=== PATIENT | female | born 1990 | race American Indian/Alaskan Native ===

== ENCOUNTER 2016-07-05 19:16 | Emergency (ER) | payer MEDICAID ==
--- NOTE | 2016-07-05 20:09 | Emergency Department Report ---
Chief Complaint: Abdominal Pain Stated Complaint: ABDOMINAL/PELVIC CRAMPS Time Seen by Provider: 07/05/16 20:08 - HPI History of Present Illness: Patient here reports that she is 9 weeks that was confirmed with 3 tests. She complains of lower abdominal pain and vaginal pain x 1 day. She denies vaginal discharge or bleeding. Reports nausea without any vomiting. She says she's having diarrhea stool. Denies any blood in her stool. Denies any fever or chills. Denies any urinary burning frequency or urgency. Patient does not have care at this time. Last menstrual period was - ROS Review of Systems: all Systems are negative unless stated in HPI above. - Exam Vital Signs: Vital Signs 07/05/16 19:41 Temperature 98.3 F Pulse Rate 82 Respiratory 20 Rate Blood Pressure 106/71 O2 Sat by Pulse 100 Oximetry Physical Exam: General: 2-year-old female well-nourished well-developed in no acute distress. CV: S1, S2. Regular rate and rhythm. Abdomen: Tender to palpate in pelvic area. Normal bowel sounds in all quadrants. No CVA tenderness bilaterally. MSE screening note: Focused history and physical exam performed. Due to findings the following was ordered:see MDM ED Medical Decision Making - Medical Decision Making Medical decision making: Patient seen by provider in triage area. Appropriate protocol activated and patient to main ED to be seen by physician. ED Disposition for MSE Condition: Stable Instructions: Abdominal Pain (ED)
[2016-07-05 20:37] LABS: Basophils % (Auto) 0.9 % (0.0-1.8); Eosinophils % (Auto) 1.5 % (0.0-4.3); Hematocrit 37.6 % (30.3-42.9); Hemoglobin 12.3 gm/dl (10.1-14.3); Mean Corpuscular HGB Conc 33 % (30-34); Mean Corpuscular Hemoglobin 28 pg (28-32); Mean Corpuscular Volume 86 fl (79-97); Platelet Count 303 K/mm3 (140-440); Red Blood Count 4.38 M/mm3 (3.65-5.03); Red Cell Distribution Width 14.7 % (13.2-15.2); White Blood Count 7.8 K/mm3 (4.5-11.0)
[2016-07-05 20:54] LABS: Alanine Aminotransferase 18 units/L (7-56); Albumin/Globulin Ratio 1.2 %; Alkaline Phosphatase 52 units/L (35-129); BUN/Creatinine Ratio 11.25; Bilirubin,Total 0.2 mg/dL (0.1-1.2); Blood Urea Nitrogen 9 mg/dL (7-17); Calcium 9.1 mg/dL (8.4-10.2); Carbon Dioxide 24 mmol/L (22-30); Chloride 102.9 mmol/L (98-107); Glucose 96 mg/dL (65-100); Lipase 24 units/L (13-60); Potassium 3.7 mmol/L (3.6-5.0); Sodium 140 mmol/L (137-145); Total Protein 7.3 g/dL (6.3-8.2)
[2016-07-05 20:55] LABS: Anion Gap 17 mmol/L
[2016-07-05 21:40] LABS: Bacteria,Urine 1+ /HPF (Negative); Bilirubin,Urine NEG (Negative); Blood,Urine NEG (Negative); Ketones,Urine 20 mg/dL (Negative); Leukocyte Esterase,Urine MOD (Negative); Mucus,Urine 2+ /HPF; Nitrite,Urine NEG (Negative); Protein,Urine <15 mg/dL mg/dL (Negative)
--- NOTE | 2016-07-06 02:22 | Emergency Department Report ---
ED Female HPI - General Chief complaint: Abdominal Pain Stated complaint: ABDOMINAL/PELVIC CRAMPS Time Seen by Provider: 07/05/16 20:08 Source: patient, RN notes reviewed Mode of arrival: Ambulatory Limitations: No Limitations - History of Present Illness Initial comments: This is a 26-year-old female, previously unknown to me. She is 3, para 2. Presents to the ER complaining of abdominal pain and vaginal pain times one day. No discharge or bleeding. Positive nausea but no vomiting. No fevers or chills. No chest pain or shortness of breath. No irritative or obstructive urinary symptoms. She is defecating normally. There is no right lower quadrant pain. She cannot describe exacerbating or relieving factors. MD Complaint: pelvic pain -: Gradual Location: suprapubic Radiation: non-radiating Severity: mild Quality: cramping Consistency: intermittent Improves with: none Worsens with: none Are you Now?: Yes Associated Symptoms: abdominal pain. denies: vaginal discharge, vaginal bleeding, headaches, loss of appetite, dysuria, shortness of breath, syncope, weakness - Related Data Sexually active: Yes Previous Rx's Medication Instructions Recorded Last Taken Type Doxylamine/Pyridoxine HCl 1 each PO QHS PRN #30 tablet. 07/06/16 Unknown Rx [Judith Caballero 10-10 mg Tablet] Vit W-Ca,Fe,FA(<1 mg) 1 each PO QDAY #30 tablet 07/06/16 Unknown Rx [ Vitamins] Allergies Allergy/AdvReac Type Severity Reaction Status Date / Time No Known Allergies Allergy Unverified 01/20/14 12:38 ED Review of Systems ROS: Stated complaint: ABDOMINAL/PELVIC CRAMPS Other details as noted in HPI Constitutional: denies: chills, fever Eyes: denies: eye pain, eye discharge, vision change ENT: denies: ear pain, throat pain Respiratory: denies: cough, shortness of breath, wheezing Cardiovascular: denies: chest pain, palpitations Endocrine: no symptoms reported Gastrointestinal: abdominal pain. denies: diarrhea, constipation, hematemesis, melena Genitourinary: denies: urgency, dysuria, discharge Musculoskeletal: denies: back pain, joint swelling, arthralgia Skin: denies: rash, lesions Neurological: denies: headache, weakness, paresthesias Psychiatric: denies: anxiety, depression Hematological/Lymphatic: denies: easy bleeding, easy bruising ED Past Medical Hx - Social History Smoking Status: Never Smoker Substance Use Type: None - Medications Home Medications: Home Medications Medication Instructions Recorded Confirmed Last Taken Type Doxylamine/Pyridoxine HCl 1 each PO QHS PRN #30 tablet. 07/06/16 Unknown Rx [Diclegis Dr 10-10 mg Tablet] Vit W-Ca,Fe,FA(<1 mg) 1 each PO QDAY #30 tablet 07/06/16 Unknown Rx [ Vitamins] ED Physical Exam - General Limitations: No Limitations General appearance: alert, in no apparent distress, obese - Head Head exam: Present: atraumatic, normocephalic - Eye Eye exam: Present: normal appearance, EOMI. Absent: nystagmus - ENT ENT exam: Present: normal exam, normal orophraynx, mucous membranes moist - Neck Neck exam: Present: normal inspection, full ROM. Absent: tenderness, meningismus - Respiratory Respiratory exam: Present: normal lung sounds bilaterally. Absent: respiratory distress, wheezes, rales, rhonchi, stridor - Cardiovascular Cardiovascular Exam: Present: regular rate, normal rhythm, normal heart sounds. Absent: bradycardia, tachycardia, irregular rhythm, systolic murmur, diastolic murmur, rubs, gallop - GI/Abdominal GI/Abdominal exam: Present: soft, normal bowel sounds. Absent: distended, tenderness, guarding, rebound, rigid, pulsatile mass - External exam: Present: normal external exam Speculum exam: Present: normal speculum exam Bi-manual exam: Present: normal bi-manual exam, other (escorted by JUAN PABLO Woo). Absent: cervical motion tendernes, adnexal tenderness, adnexal mass, uterine enlargement, uterine tenderness - Extremities Exam Extremities exam: Present: normal inspection, full ROM, normal capillary refill. Absent: tenderness, pedal edema, joint swelling, calf tenderness - Back Exam Back exam: Present: normal inspection, full ROM. Absent: tenderness, CVA tenderness (R), CVA tenderness (L), muscle spasm, paraspinal tenderness, vertebral tenderness - Neurological Exam Neurological exam: Present: alert, oriented X3, normal gait, other (Extraocular movements intact. Tongue midline. No facial droop. Facial sensation intact to light touch in the V1, V2, V3 distribution bilaterally. 5 and 5 strength in 4 extremities.. Sensation is intact to light touch in 4 extremities.). Absent : motor sensory deficit - Psychiatric Psychiatric exam: Present: normal affect, normal mood - Skin Skin exam: Present: warm, dry, intact, normal color. Absent: rash ED Course Vital Signs 07/05/16 19:41 Temperature 98.3 F Pulse Rate 82 Respiratory 20 Rate Blood Pressure 106/71 O2 Sat by Pulse 100 Oximetry - Reevaluation(s) Reevaluation #1: 07/06/16 04:12 Differential diagnosis: , ectopic , urinary tract infection, ovarian cyst, round ligament pain, constipation Assessment and plan: 26-year-old female who is with abdominal pain. There is no tenderness, rebound, guarding or peritoneal signs. There is no right lower quadrant pain. She is afebrile with reassuring vital signs and no leukocytosis. Her gynecologic exam is benign. Abdominal and transvaginal ultrasound demonstrated appropriate intrauterine . Clinically doubt torsion, there is no adnexal tenderness. She is tolerating liquid feeds. Highly doubt appendicitis for the aforementioned laboratory, radiographic, physical exam findings. Patient was started on vitamins, as needed nausea medication, and is instructed to follow up with outpatient [facility]. The importance of initiating care was discussed with the patient. She will be discharged. ED Medical Decision Making - Lab Data Result diagrams: 07/05/16 20:20 07/05/16 20:20 Vital Signs 07/05/16 19:41 Temperature 98.3 F Pulse Rate 82 Respiratory 20 Rate Blood Pressure 106/71 O2 Sat by Pulse 100 Oximetry Lab Results 07/05/16 07/05/16 07/05/16 Range/Units 20:20 20:20 20:20 WBC 7.8 (4.5-11.0) K/mm3 RBC 4.38 (3.65-5.03) M/mm3 Hgb 12.3 (10.1-14.3) gm/dl Hct 37.6 (30.3-42.9) % MCV 86 (79-97) fl MCH 28 (28-32) pg MCHC 33 (30-34) % RDW 14.7 (13.2-15.2) % Plt Count 303 (140-440) K/mm3 Lymph % (Auto) 36.4 H (13.4-35.0) % Gray % (Auto) 8.6 H (0.0-7.3) % Eos % (Auto) 1.5 (0.0-4.3) % Baso % (Auto) 0.9 (0.0-1.8) % Lymph # 2.9 (1.2-5.4) K/mm3 Gray # 0.7 (0.0-0.8) K/mm3 Eos # 0.1 (0.0-0.4) K/mm3 Baso # 0.1 (0.0-0.1) K/mm3 Seg Neutrophils % 52.6 (40.0-70.0) % Seg Neutrophils # 4.1 (1.8-7.7) K/mm3 Sodium 140 (137-145) mmol/L Potassium 3.7 (3.6-5.0) mmol/L Chloride 102.9 (98-107) mmol/L Carbon Dioxide 24 (22-30) mmol/L Anion Gap 17 mmol/L BUN 9 (7-17) mg/dL Creatinine 0.8 (0.7-1.2) mg/dL Estimated GFR > 60 ml/min BUN/Creatinine Ratio 11.25 % Glucose 96 (65-100) mg/dL Calcium 9.1 (8.4-10.2) mg/dL Total Bilirubin 0.2 (0.1-1.2) mg/dL AST 17 (5-40) units/L ALT 18 (7-56) units/L Alkaline Phosphatase 52 (35-129) units/L Total Protein 7.3 (6.3-8.2) g/dL Albumin 4.0 (3.9-5) g/dL Albumin/Globulin Ratio 1.2 % Lipase 24 (13-60) units/L HCG, Quant 24827 H (0-4) mIU/mL Urine Color (Yellow) Urine Turbidity (Clear) Urine pH (5.0-7.0) Ur Specific Carlton (1.003-1.030) Urine Protein (Negative) mg/dL Urine Glucose (UA) (Negative) mg/dL Urine Ketones (Negative) mg/dL Urine Blood (Negative) Urine Nitrite (Negative) Urine Bilirubin (Negative) Urine Urobilinogen (<2.0) mg/dL Ur Leukocyte Esterase (Negative) Urine WBC (Auto) (0.0-6.0) /HPF Urine RBC (Auto) (0.0-6.0) /HPF U Epithel Cells (Auto) (0-13.0) /HPF Urine Bacteria (Auto) (Negative) /HPF Urine Mucus /HPF Blood Type Ord Rhogam Gestat Weeks WEEKS 07/05/16 07/05/16 Range/Units 20:20 20:56 WBC (4.5-11.0) K/mm3 RBC (3.65-5.03) M/mm3 Hgb (10.1-14.3) gm/dl Hct (30.3-42.9) % MCV (79-97) fl MCH (28-32) pg MCHC (30-34) % RDW (13.2-15.2) % Plt Count (140-440) K/mm3 Lymph % (Auto) (13.4-35.0) % Gray % (Auto) (0.0-7.3) % Eos % (Auto) (0.0-4.3) % Baso % (Auto) (0.0-1.8) % Lymph # (1.2-5.4) K/mm3 Gray # (0.0-0.8) K/mm3 Eos # (0.0-0.4) K/mm3 Baso # (0.0-0.1) K/mm3 Seg Neutrophils % (40.0-70.0) % Seg Neutrophils # (1.8-7.7) K/mm3 Sodium (137-145) mmol/L Potassium (3.6-5.0) mmol/L Chloride (98-107) mmol/L Carbon Dioxide (22-30) mmol/L Anion Gap mmol/L BUN (7-17) mg/dL Creatinine (0.7-1.2) mg/dL Estimated GFR ml/min BUN/Creatinine Ratio % Glucose (65-100) mg/dL Calcium (8.4-10.2) mg/dL Total Bilirubin (0.1-1.2) mg/dL AST (5-40) units/L ALT (7-56) units/L Alkaline Phosphatase (35-129) units/L Total Protein (6.3-8.2) g/dL Albumin (3.9-5) g/dL Albumin/Globulin Ratio % Lipase (13-60) units/L HCG, Quant (0-4) mIU/mL Urine Color Yellow (Yellow) Urine Turbidity Clear (Clear) Urine pH 6.0 (5.0-7.0) Ur Specific Carlton 1.030 (1.003-1.030) Urine Protein <15 mg/dl (Negative) mg/dL Urine Glucose (UA) Neg (Negative) mg/dL Urine Ketones 20 (Negative) mg/dL Urine Blood Neg (Negative) Urine Nitrite Neg (Negative) Urine Bilirubin Neg (Negative) Urine Urobilinogen 2.0 (<2.0) mg/dL Ur Leukocyte Esterase Mod (Negative) Urine WBC (Auto) 1.0 (0.0-6.0) /HPF Urine RBC (Auto) 2.0 (0.0-6.0) /HPF U Epithel Cells (Auto) 5.0 (0-13.0) /HPF Urine Bacteria (Auto) 1+ (Negative) /HPF Urine Mucus 2+ /HPF Blood Type A POSITIVE Ord Rhogam Gestat Weeks Rh pos WEEKS - Radiology Data Radiology results: report reviewed, image reviewed Pelvic ultrasound demonstrates an incidental posterior uterine fibroid, minimal free pelvic fluid, cardiac activity of 118 bpm, intrauterine . Critical care attestation.: If time is entered above; I have spent that time in minutes in the direct care of this critically ill patient, excluding procedure time. ED Disposition Clinical Impression: Disposition: DISCHARGED TO HOME OR SELFCARE Is pt being admited?: No Does the pt Need Aspirin: No Condition: Stable Instructions: Abdominal Pain (ED) Additional Instructions: Take the medications as directed. Rest and avoid heavy lifting. Avoid strenuous physical activity. Follow-up with an [facility] doctor within the next week. It is very important to initiate care for the health, safety, well-being of yourself and the baby. Return to the ER right away with new pain , worsened pain, migration of pain, fevers, chills, intractable nausea or vomiting, inability to tolerate liquid feeds. Referrals: WILTON CHAN MD [Primary Care Provider] - 3-5 Days FARHAT FAJARDO MD [Staff Physician] - 3-5 Days
--- NOTE | 2016-07-06 02:51 | Admit Criteria Form ---
Admission Criteria Documentation: ABDOMINAL PAIN Clinical Indications for Admission to Inpatient Care (Place 'X' for any and all applicable criteria): Admission is indicated for ANY ONE of the following(1)(2)(3)(4)(5): [ x]I. Inpatient admission required rather than observation care (Also use Abdominal Pain: Observation Care, as appropriate) because of ANY ONE of the following: [ ]a) Severe pain requiring acute inpatient management [ ]b) Identification of etiology/finding that requires inpatient care (eg, aortic dissection, free air) [ ]c) Absent bowel sounds with complete ileus(6) [ ]d) Suspected toxic megacolon [ ]e) Severe electrolyte abnormalities requiring inpatient care [ ]f) High fever or infection requiring inpatient admission as indicated by ANY ONE of following(7)(8): [ ] i) Appropriate outpatient or observational care antimicrobial treatment unavailable, not effective, or not feasible [ ] ii) Documented bacteremia [ ] iii) Temperature > 104.9 degrees F (oral) [ ] iv) T >103.1 F (oral) or < 96.8 F(rectal) that does not respond to all emergency treatment measures [ ]g) Signs of intestinal obstruction [B] [ ]h) Hemodynamic instability [ ]i) IV fluid to replace significant ongoing losses (greater than 3 L/m2 per day) (12)(13) [ ]j) Percutaneous or open drainage (eg, abscess, biliary tract ) procedures [ ]k) Parenteral nutrition regimen that must be implemented on inpatient basis [ x]l) Other condition,treatment or monitoring requiring inpatient admission. [ ]II. Peritoneal signs present [ ]III. Surgery needed that cannot be performed on an ambulatory basis. [ ]IV. Evaluation requires patient to not eat or drink for extended period ( eg, more than 24 hours). [ ]V. Contraindications and/or Inappropriate clinical situations for Observational Care in patients with abdominal pain, when ANY ONE of the following is required: [ ]a) Thorough evaluation is required to prevent catastrophic events due to delays in diagnosing (e.g.Mesenteric ischemia) 1,3 [ ]b) Patient with severe pathology or with chronic symptoms unlikely to improve in the ED stay (3) [ ]. General contraindications and/or Inappropriate clinical situations for Observational Care in patients with abdominal pain, when ANY ONE of the following is required: [ ]a) Prediction of prolongation of LOS based on ANY ONE of the following may be considered as a contraindication for observational care 2, 3, 4, 5, 6, 7, 8, 9, 10, 11 [ ]i) Age > 65 yrs. [ ]ii) Patient arriving by ambulance [ ]iii) Patient with high acuity [ ]iv) Patient requiring vital sign monitoring [ ]v) Patient on IV medication [ ]b) Systolic blood pressures 180mmHg 3,12 [ ]c) Patient with altered mental status including delirium and other alteration of consciousness, (3) [ ]d) Patient whose discharge disposition will be to a prison home or rehabilitation home should not be managed in Emergency Department Observation Unit. CMS rule requires 3 days hospital stay before such placement.3,13 [ ]e) Patient with failure to thrive due to broad array of etiologies 3,16,17 [ ]f) Inability to ambulate 3,14 Extended stay beyond goal length of stay may be needed for(2)(3): [ ]a) Persistent abdominal pain with suspected intra-abdominal process [ ]b) Diagnosed condition requiring continued stay (e.g., pancreatitis, complicated diverticulitis) [ ]c) Surgery (e.g., colectomy) The original [facility] content created by [employer] has been revised. The portions of the content which have been revised are identified through the use of italic text or in bold, and [facility] has neither reviewed nor approved the modified material.All other unmodified content is copyright [facility]. Please see references footnoted in the original [facility] edition 2016
--- NOTE | 2016-07-06 03:25 | Ultrasound Report ---
FINAL REPORT PROCEDURE: US OB TRANSVAGINAL TECHNIQUE: Real-time transvaginal sonography of the uterus, placenta, amniotic fluid, adnexa, and fetus was performed with image documentation. Measurements were obtained to determine age/size. M-mode Doppler was used to document heartbeat. CPT 40418 HISTORY: abdominal pain at 9 weeks COMPARISON: No prior studies are available for comparison. FINDINGS: CRL: 6.3mm, which corresponds to a gestational age of: 6weeks, 3 days. Yolk Sac: Normal. Embryonic Cardiac Activity: 118 beats per minute Gestational Sac: Normal. Right Ovary: There is a 2 centimeter cyst. Left Ovary: Normal. Estimated delivery date: 02/26/2017 Comment: Complete anatomic survey at 18-20 weeks suggested. There is an incidental posterior uterine fibroid measuring 16 millimeters. There is minimal free pelvic fluid which is nonspecific. IMPRESSION: 1. Single living intrauterine gestation at approximately 6 weeks and 3 days 2. EDC by US 02/26/2017.
--- NOTE | 2016-07-06 03:39 | Ultrasound Report ---
FINAL REPORT PROCEDURE: US OB early TECHNIQUE: Real-time transabdominal sonography of the uterus, placenta, amniotic fluid, adnexa, and fetus was performed with image documentation. Measurements were obtained to determine age/size. M-mode Doppler was used to document heartbeat. HISTORY: abdominal pain at 9 weeks COMPARISON: No prior studies are available for comparison. FINDINGS: CRL: 6.3mm, which corresponds to a gestational age of: 6weeks, 3 days. Yolk Sac: Normal. Embryonic Cardiac Activity: 118 beats per minute Gestational Sac: Normal. Right Ovary: There is a 2 centimeter cyst. Left Ovary: Normal. Estimated delivery date: 02/26/2017 Comment: Complete anatomic survey at 18-20 weeks suggested. There is an incidental posterior uterine fibroid measuring 16 millimeters. There is minimal free pelvic fluid which is nonspecific. IMPRESSION: 1. Single living intrauterine gestation at approximately 6 weeks and 3 days 2. EDC by US 02/26/2017.
[2016-07-06 04:19] VITALS: BP 110/66
== END 2016-07-06 04:36 | disposition home or self-care (01) ==
LOC: ED 19:16
DX: O26.891 Other specified pregnancy related conditions, first trimester (principal); R10.2 Pelvic and perineal pain; R11.0 Nausea; Z3A.09 9 weeks gestation of pregnancy
CPT/HCPCS: 36415; 76801; 76817; 80053; 81001; 83690; 84702; 85025; 86900; 86901

== ENCOUNTER 2016-07-25 13:45 | Emergency (ER) | payer MEDICAID ==
--- NOTE | 2016-07-25 18:13 | Emergency Department Report ---
Chief Complaint: Abdominal Pain Stated Complaint: 3 MONTHS / CRAMPING - HPI History of Present Illness: 26-year-old female presents with complaint of lower abdominal pain worsening mild spotting denies dysuria, intermittent nausea - ROS Review of Systems: Currently - Exam Vital Signs: Vital Signs 07/25/16 13:55 Temperature 98.9 F Pulse Rate 95 H Respiratory 16 Rate Blood Pressure 117/60 O2 Sat by Pulse 100 Oximetry Physical Exam: Abdominal pain MSE screening note: Focused history and physical exam performed. Due to findings the following was ordered: Screening Assessment/Plan/Differential Dx: Abdominal pain 1- This initial assessment/diagnostic orders/clinical plan/ treatment(s) is/are subject to change based on pt's health status, clinical progression and re- assessment by fellow clinical providers in the ED. Further treatment and workup at subsequent clinical provers discretion. Patient/guardians urged not to elope from ED as their condition may be serious if not clinically assessed and managed. 2-ultrasound, urine, blood work, type and screen, hCG level ED Disposition for MSE Condition: Stable Instructions: Abdominal Pain (ED)
[2016-07-25 19:14] LABS: Basophils % (Auto) 0.6 % (0.0-1.8); Eosinophils % (Auto) 1.7 % (0.0-4.3); Hematocrit 35.3 % (30.3-42.9); Hemoglobin 11.4 gm/dl (10.1-14.3); Mean Corpuscular HGB Conc 32 % (30-34); Mean Corpuscular Hemoglobin 28 pg (28-32); Mean Corpuscular Volume 88 fl (79-97); Platelet Count 302 K/mm3 (140-440); Red Blood Count 4.02 M/mm3 (3.65-5.03); Red Cell Distribution Width 14.5 % (13.2-15.2); White Blood Count 7.9 K/mm3 (4.5-11.0)
[2016-07-25 19:33] LABS: BUN/Creatinine Ratio 16.66; Blood Urea Nitrogen 10 mg/dL (7-17); Calcium 8.9 mg/dL (8.4-10.2); Carbon Dioxide 22 mmol/L (22-30); Chloride 101.4 mmol/L (98-107); Glucose 94 mg/dL (65-100); Potassium 4.3 mmol/L (3.6-5.0); Sodium 137 mmol/L (137-145)
[2016-07-25 19:35] LABS: Anion Gap 18 mmol/L
[2016-07-25 19:44] LABS: Alanine Aminotransferase 42 units/L (7-56); Albumin 3.9 g/dL (3.9-5); Albumin/Globulin Ratio 1.2 %; Alkaline Phosphatase 60 units/L (35-129); Bilirubin,Total 0.2 mg/dL (0.1-1.2); Total Protein 7.2 g/dL (6.3-8.2)
[2016-07-25 19:53] LABS: Bilirubin,Direct < 0.2 mg/dL (0-0.2)
[2016-07-25 20:22] LABS: Bilirubin,Urine NEG (Negative); Blood,Urine NEG (Negative); Ketones,Urine NEG (Negative); Leukocyte Esterase,Urine NEG (Negative); Mucus,Urine FEW /HPF; Nitrite,Urine NEG (Negative); Protein,Urine <15 mg/dL mg/dL (Negative); Urobilinogen,Urine < 2.0 mg/dL (<2.0); WBC,Urine < 1.0 /HPF (0.0-6.0)
--- NOTE | 2016-07-25 21:55 | Ultrasound Report ---
FINAL REPORT PROCEDURE: Transabdominal obstetrical ultrasound. TECHNIQUE: Real-time transabdominal sonography of the uterus, placenta, amniotic fluid, adnexa, and fetus was performed with image documentation. Measurements were obtained to determine age/size. M-mode Doppler was used to document heartbeat. CPT 35602 HISTORY: Pelvic pain. COMPARISON: Obstetrical ultrasound 07/06/2016. FINDINGS: The uterus measures 11.7 centimeters x 6.5 centimeters x 7.2 centimeters. The myometrium is unremarkable. There is an intrauterine gestational sac. A pole is identified. The crown-rump length measurement is 2.8 centimeters. This indicates a menstrual age of 9 weeks 4 days. The estimated date of confinement is 02/23/2017. Cardiac activity is documented at 159 beats per minute. Both ovaries appear normal in size. There is a small cyst in the right ovary. IMPRESSION: Viable intrauterine with a menstrual age of 9 weeks 4 days.
--- NOTE | 2016-07-25 22:00 | Ultrasound Report ---
FINAL REPORT PROCEDURE: Transvaginal obstetrical ultrasound. TECHNIQUE: Real-time transvaginal sonography of the uterus, placenta, amniotic fluid, adnexa, and fetus was performed with image documentation. Measurements were obtained to determine age/size. M-mode Doppler was used to document heartbeat. CPT 46330 HISTORY: , pelvic pain. COMPARISON: Obstetrical ultrasound 07/06/2016. FINDINGS: The cervix is closed. The uterus measures 11.7 centimeters x 6.5 centimeters x 7.2 centimeters. The myometrium appears uniform. There is an intrauterine gestational sac. A pole is visible. Cardiac activity is documented at 172 beats per minute. The crown-rump length measurement is 2.7 centimeters. This indicates a menstrual age of 9 weeks 3 days. The estimated date of confinement is 02/24/2017. There is a small area of hypoechogenicity adjacent to the gestational sac. This measures 1.8 centimeters in maximum dimension. This could represent a small subchorionic hemorrhage. Both ovaries appear normal in size. There is a small cyst in the right ovary measuring 1.9 centimeters. IMPRESSION: Viable intrauterine with a menstrual age of 9 weeks 3 days. Question small subchorionic hemorrhage.
[2016-07-25 23:18] VITALS: BP 108/61
[2016-07-26] MEDS ORDERED: TYLENOL PO ONE (02:33)
--- NOTE | 2016-07-26 02:37 | Emergency Department Report ---
[id number] 01:55 - HPI HPI: This is a 26-year-old Afro-Slovak female presents the emergency department with complaint of a few days of abdominal cramping and a one hour history of some vaginal spotting. The patient believes she is about 3 months . She is with one previous still . She sees the [facility] near here with Dr. Stephens in it and has an appointment on Saturday. She denies any fever, nausea, vomiting, back pain, vaginal discharge, dysuria. She is not taken anything for symptoms prior to presentation. No recent travel or sick contacts at home. ED Past Medical Hx - Social History Smoking Status: Never Smoker Substance Use Type: None - Medications Home Medications: Home Medications Medication Instructions Recorded Confirmed Last Taken Type Doxylamine/Pyridoxine HCl 1 each PO QHS PRN #30 tablet. 07/06/16 Unknown Rx [Diclegis Dr 10-10 mg Tablet] Vit W-Ca,Fe,FA(<1 mg) 1 each PO QDAY #30 tablet 07/06/16 Unknown Rx [ Vitamins] ED Review of Systems ROS: Stated complaint: 3 MONTHS / CRAMPING Other details as noted in HPI Comment: All other systems reviewed and negative Constitutional: denies: chills, fever Eyes: denies: eye pain, eye discharge, vision change ENT: denies: ear pain, throat pain Respiratory: denies: cough, shortness of breath, wheezing Cardiovascular: denies: chest pain, palpitations Gastrointestinal: abdominal pain. denies: nausea, vomiting Genitourinary: denies: dysuria, discharge Musculoskeletal: denies: back pain, joint swelling, arthralgia Skin: denies: rash, lesions Neurological: denies: headache, weakness, paresthesias Physical Exam - Physical Exam Vital Signs: Vital Signs 07/25/16 07/25/16 13:55 23:17 Temperature 98.9 F Pulse Rate 95 H 80 Respiratory 16 18 Rate Blood Pressure 117/60 108/61 O2 Sat by Pulse 100 100 Oximetry Physical Exam: GENERAL: The patient is well-developed well-nourished. HEENT: Normocephalic. Atraumatic. Extraocular motions are intact. Patient has moist mucous membranes. Pupils equal reactive to light bilaterally. NECK: Supple. Trachea is midline. CHEST/LUNGS: Clear to auscultation. There is no respiratory distress noted. HEART/CARDIOVASCULAR: Regular. There is no tachycardia. There is no gallop rub or murmur. ABDOMEN: Abdomen is soft, nontender. No guarding rebound tenderness. Patient has normal bowel sounds. There is no abdominal distention. Obese habitus. SKIN: There is no rash. Warm but dry. NEURO: The patient is awake, alert, and oriented. The patient is cooperative. The patient has no focal neurologic deficits. The patient has normal speech. MUSCULOSKELETAL: There is no tenderness or deformity. There is no limitation range of motion. There is no evidence of acute injury. ED Course Vital Signs 07/25/16 07/25/16 13:55 23:17 Temperature 98.9 F Pulse Rate 95 H 80 Respiratory 16 18 Rate Blood Pressure 117/60 108/61 O2 Sat by Pulse 100 100 Oximetry ED Medical Decision Making - Lab Data Result diagrams: 07/25/16 18:51 07/25/16 18:51 - Radiology Data Radiology results: report reviewed Transvaginal/ ultrasound shows a live intrauterine at 9 weeks and 3 days. Small subchorionic bleed. - Medical Decision Making 26-year-old female presents to the emergency department with a few days of abdominal cramping and about 1 hour of vaginal spotting/bleeding. Patient's labs are unremarkable. Ultrasound shows a live intrauterine and a small subchorionic bleed. She has an appointment coming up early next week with her [facility]. She will remain on her vitamins. We discussed the diagnosis of threatened miscarriage. She will return to the ER with any worsening of her symptoms including sharp abdominal pain or increased vaginal bleeding or she will return with any acute distress. She understands and agrees the plan. Vital signs stable throughout her ED course. - Differential Diagnosis , miscarriage, threatened , UTI, fibroids Critical Care Time: No Critical care attestation.: If time is entered above; I have spent that time in minutes in the direct care of this critically ill patient, excluding procedure time. ED Disposition Clinical Impression: Threatened Qualifiers: Weeks of gestation: 9 weeks Qualified Code(s): Z3A.09 - 9 weeks gestation of Disposition: DISCHARGED TO HOME OR SELFCARE Is pt being admited?: No Does the pt Need Aspirin: No Condition: Stable Instructions: (ED), Threatened Miscarriage (ED) Additional Instructions: Please follow-up with your [facility] as previously scheduled. Return to the emergency department with any worsening of your symptoms or any acute distress. Referrals: WILTON CHAN MD [Primary Care Provider] - 3-5 Days BLANCA STEPHENS MD [Staff Physician] - 3-5 Days Time of Disposition: 02:37
== END 2016-07-26 02:54 | disposition home or self-care (01) ==
LOC: ED 13:45
DX: O20.0 Threatened abortion (principal); Z3A.09 9 weeks gestation of pregnancy
CPT/HCPCS: 36415; 76801; 76817; 80048; 80074; 81001; 84702; 85025; 86850; 86900; 86901; 87086

== ENCOUNTER 2016-08-27 09:35 | Day surgery (SDC) | payer MEDICAID ==
--- NOTE | 2016-08-24 16:12 | History and Physical Report ---
History of Present Illness Date of examination: 08/24/16 Date of admission: 08/27/16 Chief complaint: incompetent cervix History of present illness: Pt dx with cx incompetence by MFM and cerclage was recommended.Procedure d/w at [facility] and several questions were addressed and answered. Pt signed consent form and was provided with pre op instructions to be at the hospital at 0930 as her procedure is scheduled for 1130 am and that she is to not eat anything after midnight on Saturday 08/26 and morning of 08/27/16. Again all questions were addressed and answered. Past History : 2 Term Births: 1 Premature Births: 1 Living Children: 1 Elect. Ab: 0 Spont. Ab: 0 Ectopics: 0 # 1 Delivery date: 06/22/2011 Weeks Gestation: 39 Delivery type: Vaginal Hours of labor: 10 Anesthesia type: epidural Delivery location: [facility] [place] Infant Sex: female weight: 6 Name: Tye Comments: + GBS # 2 Delivery date: 11/08/2012 Weeks Gestation: 22 Delivery type: Vaginal Anesthesia type: none Delivery location: [facility] [place] Sex: female weight: 1.13 Comments: rupture of membranes Past Medical History: Anemia 22wk loss due to PROM blood transfusion long ago for anemia Past Surgical History: negative Past Medical History Anesthesia Complications: negative Anemia: negative Autoimmune Disorder: negative Bleeding Disorder: negative Blood Transfusions: negative Breast Disease: negative Diabetes: negative Heart Disease: negative Hypertension: negative Hepatitis/Liver Disease: negative Kidney Disease/UTI: negative Neurologic/Epilepsy/Migraines: negative Phlebitis/Varicosities: negative Psychiatric: negative Pulmonary Disease/Asthma: negative Thyroid Disease: negative Hospitalizations: negative Surgery (Non-deputy county attorney): negative Abnormal PAP: negative YASMIN Exposure: negative Infertility: negative Uterine Anomaly: negative Uterine Surgery (not C/S): negative Other Gynecologic Problems: negative Social Hx: single no e/t/d Infection History Hx of STD: none HIV Risk Eval: low risk Hepatitis B Risk Eval: low risk Personal hx. of genital herpes: no Partner hx. of genital herpes: no Varicella/Chicken Pox Status: Previous Disease TB Risk: no Genetic History Congenital Heart Defect: Mom: no Dad: no Christopher Disease: Mom: no Dad: no Thalassemia Mom: no Dad: no Neural Tube Defect Mom: no Dad: no Down's Syndrome Mom: no Dad: no Cyril-Sachs Mom: no Dad: no Sickle Cell Disease/Trait Mom: no Dad: no Hemophilia Mom: no Dad: no Muscular Dystrophy Mom: no Dad: no Cystic Fibrosis Mom: no Dad: no [place] Chorea Mom: no Dad: no Mental Retardation Mom: no Dad: no Fragile X Mom: no Dad: no Other Genetic/Chromosomal Disorder Mom: no Dad: no Child w/other defect Mom: no Dad: no Enviromental Exposures Xray Exposure: no Medication, drug, or alcohol use since LMP: no Chemical/Other Exposure: no Exposure to Cat Liter: no Past History Past Medical History: other (anemia) Past Surgical History: no surgical history ABRASIVE GRINDER History: denies: abnormal PAP smear Family/Genetic History: none Social history: no significant social history, single - Obstetrical History Expected Date of Delivery: 02/21/17 Actual Gestation: 14 Week(s) 1 Day(s) : 3 Para: 1 Hx # Term Pregnancies: 1 Number of Pregnancies: 1 (20 wks PROM) Number of Living Children: 1 Medications and Allergies Allergies Allergy/AdvReac Type Severity Reaction Status Date / Time No Known Allergies Allergy Unverified 01/20/14 12:38 Home Medications Medication Instructions Recorded Confirmed Last Taken Type Doxylamine/Pyridoxine HCl 1 each PO QHS PRN #30 tablet. 07/06/16 Unknown Rx [Judith Caballero 10-10 mg Tablet] Vit W-Ca,Fe,FA(<1 mg) 1 each PO QDAY #30 tablet 07/06/16 Unknown Rx [ Vitamins] Review of Systems All systems: negative - Physical Exam Cardiovascular: Normal S1, Normal S2 Lungs: Positive: Clear to auscultation, Normal air movement Abdomen: Positive: normal appearance, soft. Negative: distention, tenderness, guarding Genitourinary (Female): Positive: other (deferred) Results All other labs normal. Assessment and Plan - Patient Problems (1) Cervical incompetence affecting management of mother, antepartum Status: Acute Plan to address problem: -admit -prepare for cerclage -CL upon admission.
[~2016-08-27 09:35] MED LIST: LACTATED RINGERS 1,000 ML IV SCH; TYLENOL PO PRN; ZOFRAN IV PRN; ceFAZolin 2 GM in NACL 0.9% 100 ML IV ONE
[2016-08-27 10:37] LABS: Basophils % (Auto) 0.4 % (0.0-1.8); Eosinophils % (Auto) 1.3 % (0.0-4.3); Hematocrit 37.2 % (30.3-42.9); Hemoglobin 12.1 gm/dl (10.1-14.3); Mean Corpuscular HGB Conc 33 % (30-34); Mean Corpuscular Hemoglobin 29 pg (28-32); Mean Corpuscular Volume 89 fl (79-97); Platelet Count 303 K/mm3 (140-440); Red Blood Count 4.18 M/mm3 (3.65-5.03); White Blood Count 7.7 K/mm3 (4.5-11.0)
[2016-08-27] MEDS ORDERED: ANCEF/STERILE WATER 2 GM/20 ML 2 GM/20 ML SYRINGE IV ONE (11:04)
--- NOTE | 2016-08-27 11:21 | Ultrasound Report ---
ULTRASOUND OB LIMITED ULTRASOUND OB TRANSVAGINAL History: Preoperative evaluation, pain during . Technique: Transabdominal ultrasound with Doppler interrogation. Gestation: Single Heart Rate: 163 BPM Cervical length: 3.9 cm (Normal > 3 cm)
--- NOTE | 2016-08-27 11:24 | Anesthesia Consultation ---
Anesthesia Consult and Med Hx Date of service: 08/27/16 - Airway Anesthetic Teeth Evaluation: Good ROM Head & Neck: Adequate Mental/Hyoid Distance: Adequate Mallampati Class: Class III Intubation Access Assessment: Probably Good - Pulmonary Exam CTA: Yes - Cardiac Exam Cardiac Exam: RRR - Pre-Operative Health Status ASA Pre-Surgery Classification: ASA2 Proposed Anesthetic Plan: Spinal - Pre-Anesthesia Comment Pre-Anesthesia Comments: 15 weeks - Pulmonary Hx Smoking: Yes (patient states she quit 07/2016 when she found out she was ) Hx Asthma: No - Cardiovascular System Hx Hypertension: No - Central Nervous System Hx Seizures: No Hx Psychiatric Problems: No - Endocrine Hx Renal Disease: No Hx Hypothyroidism: No Hx Hyperthyroidism: No - Hematic Hx Anemia: No Hx Sickle Cell Disease: No - Other Systems Hx Alcohol Use: No
--- NOTE | 2016-08-27 11:25 | Anesthesia Day of Surgery ---
Anesthesia Day of Surgery - Day of Surgery Patient Examined: Yes Patient H&P Reviewed: Yes Patient is NPO: Yes Beta Blockers: No Cardiac Clearance: No Pulmonary Clearance: No
[2016-08-27] MEDS ORDERED: ZOFRAN ONE (11:31)
[2016-08-27] MEDS ORDERED: ANCEF/STERILE WATER 2 GM/20 ML IV ONE (11:49)
[2016-08-27] MEDS ORDERED: SUBLIMAZE ONE (12:12)
[2016-08-27] MEDS ORDERED: XYLOCAINE MPF 2% ONE (12:16)
--- NOTE | 2016-08-27 12:58 | Operative Report ---
Operative Report Operative Report: Date of procedure: 08/27/2016 Pre-operative diagnosis: Incompetent cervix Post-operative diagnosis: Same Procedure name(s): Bea cervical cerclage Surgeon: Lázaro Huang MD Arc Trimmer: Anesthesia: Spinal EBL: Minimal Complications: None Findings: Cervix approximately 3 and half centimeters in length Specimen(s): None Procedure: Patient was brought to the operating room where spinal anesthesia was induced without difficulty. Patient was then placed in [facility] stirrups. Patient was prepped and draped in usual sterile manner. Bladder was emptied with a red rubber catheter. Weighted speculum was placed in her vagina. The fire control assistant retracted the bladder anteriorly. Her cervical exam as noted above. Starting at 1:00 the first stitch of the cerclage was placed in pursestring fashion. With the knot tied at 1:00 under moderate distress with no evidence of rupture of amniotic sac. A second stitch was placed in similar fashion slightly distal to the first. The cervix was hemostatic nourished menstrual removed. The patient was counseled to recovery room in good condition. Instrument count correct 2.
--- NOTE | 2016-08-27 15:06 | Post Anesthesia Evaluation ---
- Post Anesthesia Evaluation Patient Participated: Yes Airway Patent: Yes Stable Respiratory Function: Yes Temp > 96.8F: Yes Pain Manageable: Yes Adequeate Hydration: Yes Anesthesia Complications: No Block Receding Appropriately: Yes
[2016-08-27 16:42] VITALS: BP 116/58
== END 2016-08-27 19:01 | disposition home or self-care (01) ==
LOC: LD 09:35 → TRG 09:35 → APU 12:26 → LD 13:05 → TRG 19:01
PROVIDERS: ATTEND Obstetrics & Gynecology
DX: O34.32 Maternal care for cervical incompetence, second trimester (principal); D64.9 Anemia, unspecified; Z3A.15 15 weeks gestation of pregnancy; Z87.891 Personal history of nicotine dependence
CPT/HCPCS: 36415; 59320; 76815; 76817; 85025; 86850; 86900; 86901; 96360; 96361; J0690; J2405; J3010; J7120

== ENCOUNTER 2016-12-14 17:41 | Outpatient (CLI) | payer MEDICAID ==
[2016-12-14 18:15] VITALS: BP 114/72
[2016-12-14] MEDS ORDERED: LACTATED RINGERS 500 ML IV ONE (19:00)
--- NOTE | 2016-12-16 10:07 | Ultrasound Report ---
ULTRASOUND OB LIMITED History: well being Technique: Transabdominal ultrasound with Doppler interrogation. Gestation: Single Position: Cephalic Amniotic Fluid: Normal LIZ = 13.3 cm Placenta: Anterior Placental Grade: 0 Heart Rate: 150 BPM
--- NOTE | 2016-12-16 10:07 | Ultrasound Report ---
ULTRASOUND BIOPHYSICAL PROFILE: History: well being Technique: Transabdominal ultrasound with Doppler interrogation. 2 - breathing movements 2 - movements 2 - posture and tone 2 - Qualitative amniotic fluid volume 8 - TOTAL SCORE OF POSSIBLE 8 Heart Rate (bpm) 150
== END 2016-12-14 18:40 | disposition home or self-care (01) ==
LOC: TRG 17:41
PROVIDERS: ATTEND Obstetrics & Gynecology
DX: O47.03 False labor before 37 completed weeks of gestation, third trimester (principal); Z3A.30 30 weeks gestation of pregnancy
CPT/HCPCS: 59025; 76815; 76819

== ENCOUNTER 2017-02-08 11:48 | Inpatient (IN) | payer MEDICAID ==
[2017-02-08] MEDS ORDERED: BRETHINE SUB-Q PRN (11:50)
[2017-02-08] MEDS ORDERED: POLYCILLIN/NS 2 GM/100 ML 2 GM/100 ML BAG IV ONE (11:50)
[2017-02-08] MEDS ORDERED: STADOL IV PRN (11:50)
[2017-02-08] MEDS ORDERED: XYLOCAINE 2% INFILTRATI ONE (11:50)
[2017-02-08] MEDS ORDERED: MINERAL OIL PO PRN (11:50)
[2017-02-08] MEDS ORDERED: ZOFRAN IV PRN (11:50)
[2017-02-08] MEDS ORDERED: ePHEDrine SULFATE IV PRN ×2 (11:50→19:21)
[2017-02-08] MEDS ORDERED: SUBLIMAZE IV PRN (11:50)
--- NOTE | 2017-02-08 11:59 | History and Physical Report ---
History of Present Illness Date of examination: 02/08/17 Date of admission: 02/08/17 11:48 Chief complaint: Sent from office as direct admit; laboring. History of present illness: EDC 02/21/2017 Past History : 2 Term Births: 1 Premature Births: 1 Living Children: 1 Elect. Ab: 0 Spont. Ab: 0 Ectopics: 0 # 1 Delivery date: 06/22/2011 Weeks Gestation: 39 Delivery type: Vaginal Hours of labor: 10 Anesthesia type: epidural Delivery location: [facility] Sex: female weight: 6 Name: Tye Comments: + GBS # 2 Delivery date: 11/08/2012 Weeks Gestation: 22 Delivery type: Vaginal Anesthesia type: none Delivery location: [facility] Infant Sex: female weight: 1.13 Comments: rupture of membranes Past Medical History: Anemia 22wk loss due to PROM blood transfusion long ago for anemia Past Surgical History: negative Past Medical History Anesthesia Complications: negative Anemia: negative Autoimmune Disorder: negative Bleeding Disorder: negative Blood Transfusions: negative Breast Disease: negative Diabetes: negative Heart Disease: negative Hypertension: negative Hepatitis/Liver Disease: negative Kidney Disease/UTI: negative Neurologic/Epilepsy/Migraines: negative Phlebitis/Varicosities: negative Psychiatric: negative Pulmonary Disease/Asthma: negative Thyroid Disease: negative Hospitalizations: negative Surgery (Non-sales representative girls' apparel): negative Abnormal PAP: negative YASMIN Exposure: negative Infertility: negative Uterine Anomaly: negative Uterine Surgery (not C/S): negative Other Gynecologic Problems: negative Social Hx: single no e/t/d Infection History Hx of STD: none HIV Risk Eval: low risk Hepatitis B Risk Eval: low risk Personal hx. of genital herpes: no Partner hx. of genital herpes: no Varicella/Chicken Pox Status: Previous Disease TB Risk: no Genetic History Congenital Heart Defect: Mom: no Dad: no Christopher Disease: Mom: no Dad: no Thalassemia Mom: no Dad: no Neural Tube Defect Mom: no Dad: no Down's Syndrome Mom: no Dad: no Cyril-Sachs Mom: no Dad: no Sickle Cell Disease/Trait Mom: no Dad: no Hemophilia Mom: no Dad: no Muscular Dystrophy Mom: no Dad: no Cystic Fibrosis Mom: no Dad: no [place] Chorea Mom: no Dad: no Mental Retardation Mom: no Dad: no Fragile X Mom: no Dad: no Other Genetic/Chromosomal Disorder Mom: no Dad: no Child w/other defect Mom: no Dad: no Enviromental Exposures Xray Exposure: no Medication, drug, or alcohol use since LMP: no Chemical/Other Exposure: no Exposure to Cat Liter: no Active Medications (reviewed today): RX 1 TABS ( VIT-FE FUMARATE-FA TABS) one po q day ZOFRAN ODT 8 MG TBDP (ONDANSETRON) 1 po q12hrs prn Current Allergies (reviewed today): No known allergies Past History - Obstetrical History Expected Date of Delivery: 02/21/17 Actual Gestation: 38 Week(s) 1 Day(s) : 3 Para: 2 Hx # Term Pregnancies: 1 Number of Pregnancies: 1 Spontaneous Abortions: 0 Induced : 0 Number of Living Children: 1 Medications and Allergies Allergies Allergy/AdvReac Type Severity Reaction Status Date / Time No Known Allergies Allergy Unverified 01/20/14 12:38 Home Medications Medication Instructions Recorded Confirmed Last Taken Type Doxylamine/Pyridoxine HCl 1 each PO QHS PRN #30 tablet. 07/06/16 Unknown Rx [Judith Caballero 10-10 mg Tablet] Vit W-Ca,Fe,FA(<1 mg) 1 each PO QDAY #30 tablet 07/06/16 Unknown Rx [ Vitamins] Active Meds: Active Medications Butorphanol Tartrate (Stadol) 2 mg IV Q2H PRN PRN Reason: Pain , Severe (7-10) Ephedrine Sulfate (Ephedrine Sulfate) 10 mg IV Q2M PRN PRN Reason: Hypotension Stop: 02/08/17 11:55 Fentanyl (Sublimaze) 100 mcg IV Q2H PRN PRN Reason: Labor Pain Ampicillin Sodium (Polycillin/Ns 2 Gm/100 Ml) 2 gm in 100 mls @ 100 mls/hr IV ONCE ONE PRN Reason: Protocol Stop: 02/08/17 12:49 Ampicillin Sodium (Polycillin/Ns 1 Gm/50 Ml) 1 gm in 50 mls @ 100 mls/hr IV Q4HR ANGE PRN Reason: Protocol Lactated Ringer's (Lactated Ringers) 1,000 mls @ 125 mls/hr IV DIRECT ANGE Oxytocin/Sodium Chloride (Pitocin/Ns 20 Unit/1000ml Drip) 20 units in 1,000 mls @ 125 mls/hr IV DIRECT ANGE Lidocaine (Xylocaine 2%) 20 ml INFILTRATI ONCE ONE Stop: 02/08/17 11:51 Mineral Oil (Mineral Oil) 30 ml PO QHS PRN PRN Reason: Constipation Ondansetron HCl (Zofran) 4 mg IV Q8H PRN PRN Reason: Nausea And Vomiting Terbutaline Sulfate (Brethine) 0.25 mg SUB-Q ONCE PRN PRN Reason: Hyperstimulation/Hypertonicity Stop: 02/08/17 11:51 Review of Systems All systems: negative - Physical Exam Breasts: Positive: normal Cardiovascular: Regular rate Lungs: Positive: Clear to auscultation, Normal air movement Abdomen: Positive: normal appearance, soft, normal bowel sounds Genitourinary (Female): Positive: normal external genitalia, normal perenium Vulva: both: normal Vagina: Positive: normal moisture Uterus: Positive: normal size, normal contour Anus/Rectum: Positive: normal perianal skin Extremities: Positive: normal Deep Tendon Reflex Grade: Normal +2 - Obstetrical FHR: auscultation normal Cervical Dilatation: 5.5 (in office by Dr. Munson) Cervical Effacement Percentage: 90 station: +1 Uterine Tone Measurement Phase: Contraction Results All other labs normal. Assessment and Plan 26y/o @ 38+1 weeks gestation. cerclage removed in office 01/30/17. SVE 5.5/ 90/+1. orders in EMR. GBS +, Anticipate . - Patient Problems (1) Positive GBS test Current Visit: Yes Status: Acute Plan to address problem: Antibiotics q4h until delivery (2) 38 weeks gestation of Current Visit: Yes Status: Acute
[2017-02-08] MEDS ORDERED: PITOCin/NS 20 UNIT/1000ML DRIP 20 UNITS/1,000 ML BAG IV SCH (12:00)
[2017-02-08] MEDS: LACTATED RINGERS 1,000 ML IV SCH ×2 (13:18→18:06)
[2017-02-08 13:37] LABS: Hematocrit 36.9 % (30.3-42.9); Hemoglobin 11.9 gm/dl (10.1-14.3); Mean Corpuscular HGB Conc 32 % (30-34); Mean Corpuscular Hemoglobin 28 pg (28-32); Mean Corpuscular Volume 88 fl (79-97); Platelet Count 267 K/mm3 (140-440); Red Blood Count 4.18 M/mm3 (3.65-5.03); Red Cell Distribution Width 14.5 % (13.2-15.2); White Blood Count 5.9 K/mm3 (4.5-11.0)
[2017-02-08] MEDS: POLYCILLIN/NS 1 GM/50 ML 1 GM/50 ML BAG IV SCH ×2 (16:00→19:49)
[2017-02-08] MEDS ORDERED: PITOCin/NS 30 UNIT/500ML 30 UNITS/500 ML BAG IV SCH (17:00)
--- NOTE | 2017-02-08 17:35 | Progress Note ---
Assessment and Plan Second dose of antibiotic infused, AROM clear fluid. no cerclage stitch palpated during exam. Encouraged patient to get epidural as needed. Will start pitocin augmentation. - Patient Problems (1) Positive GBS test Current Visit: Yes Status: Acute (2) 38 weeks gestation of Current Visit: Yes Status: Acute Subjective - Subjective Date of service: 02/08/17 Principal diagnosis: IUp @ 38+1, advance dilitation Interval history: EDC 02/21/2017 Past History : 2 Term Births: 1 Premature Births: 1 Living Children: 1 Elect. Ab: 0 Spont. Ab: 0 Ectopics: 0 # 1 Delivery date: 06/22/2011 Weeks Gestation: 39 Delivery type: Vaginal Hours of labor: 10 Anesthesia type: epidural Delivery location: [facility] Infant Sex: female weight: 6 Name: Tye Comments: + GBS # 2 Delivery date: 11/08/2012 Weeks Gestation: 22 Delivery type: Vaginal Anesthesia type: none Delivery location: [facility] Infant Sex: female weight: 1.13 Comments: rupture of membranes Past Medical History: Anemia 22wk loss due to PROM blood transfusion long ago for anemia Past Surgical History: negative Past Medical History Anesthesia Complications: negative Anemia: negative Autoimmune Disorder: negative Bleeding Disorder: negative Blood Transfusions: negative Breast Disease: negative Diabetes: negative Heart Disease: negative Hypertension: negative Hepatitis/Liver Disease: negative Kidney Disease/UTI: negative Neurologic/Epilepsy/Migraines: negative Phlebitis/Varicosities: negative Psychiatric: negative Pulmonary Disease/Asthma: negative Thyroid Disease: negative Hospitalizations: negative Surgery (Non-bridge painter): negative Abnormal PAP: negative YASMIN Exposure: negative Infertility: negative Uterine Anomaly: negative Uterine Surgery (not C/S): negative Other Gynecologic Problems: negative Social Hx: single no e/t/d Infection History Hx of STD: none HIV Risk Eval: low risk Hepatitis B Risk Eval: low risk Personal hx. of genital herpes: no Partner hx. of genital herpes: no Varicella/Chicken Pox Status: Previous Disease TB Risk: no Genetic History Congenital Heart Defect: Mom: no Dad: no Christopher Disease: Mom: no Dad: no Thalassemia Mom: no Dad: no Neural Tube Defect Mom: no Dad: no Down's Syndrome Mom: no Dad: no Cyril-Sachs Mom: no Dad: no Sickle Cell Disease/Trait Mom: no Dad: no Hemophilia Mom: no Dad: no Muscular Dystrophy Mom: no Dad: no Cystic Fibrosis Mom: no Dad: no [place] Chorea Mom: no Dad: no Mental Retardation Mom: no Dad: no Fragile X Mom: no Dad: no Other Genetic/Chromosomal Disorder Mom: no Dad: no Child w/other defect Mom: no Dad: no Enviromental Exposures Xray Exposure: no Medication, drug, or alcohol use since LMP: no Chemical/Other Exposure: no Exposure to Cat Liter: no Active Medications (reviewed today): RX 1 TABS ( VIT-FE FUMARATE-FA TABS) one po q day ZOFRAN ODT 8 MG TBDP (ONDANSETRON) 1 po q12hrs prn Current Allergies (reviewed today): No known allergies Patient reports: movement normal, contractions, no vaginal bleeding Objective - Vital Signs Vital Signs: Vital Signs - 12hr 02/08/17 02/08/17 02/08/17 12:20 12:45 12:52 Temperature 98.2 F Pulse Rate 97 H 97 H 98 H Respiratory 20 Rate Blood Pressure 110/64 110/64 97/56 02/08/17 02/08/17 02/08/17 13:20 13:51 14:20 Temperature Pulse Rate 88 92 H 85 Respiratory Rate Blood Pressure 104/58 85/44 108/58 02/08/17 02/08/17 02/08/17 14:50 15:20 15:51 Temperature Pulse Rate 98 H 97 H 94 H Respiratory Rate Blood Pressure 107/73 88/55 111/68 02/08/17 02/08/17 02/08/17 16:20 17:16 17:20 Temperature Pulse Rate 93 H 88 103 H Respiratory Rate Blood Pressure 134/65 112/65 93/54 02/08/17 17:23 Temperature 99.2 F Pulse Rate 90 Respiratory 18 Rate Blood Pressure 93/54 - Exam Breasts: normal Cardiovascular: Regular rate Lungs: Clear to auscultation, Normal air movement Abdomen: Present: normal appearance, soft Vulva: both: normal Uterus: Present: normal FHR: auscultation normal, category 1 Uterine Contraction Monitor Mode: External Cervical Dilatation: 5 (AROM clear) Cervical Effacement Percentage: 80 station: +1 Uterine Contraction Pattern: Irregular Uterine Tone Measurement Phase: Contraction Uterine Contraction Intensity: Mild Extremities: normal Deep Tendon Reflex Grade: Normal +2 - Labs Labs: Laboratory Results - last 24 hr 02/08/17 02/08/17 12:30 12:30 WBC 5.9 RBC 4.18 Hgb 11.9 Hct 36.9 MCV 88 MCH 28 MCHC 32 RDW 14.5 Plt Count 267 Blood Type A POSITIVE Antibody Screen Negative
[2017-02-08] MEDS ORDERED: NARCAN 2 MG/2 ML IV PRN (19:21)
--- NOTE | 2017-02-08 19:22 | Anesthesia Consultation ---
Anesthesia Consult and Med Hx Date of service: 02/08/17 - Airway Anesthetic Teeth Evaluation: Good ROM Head & Neck: Adequate Mental/Hyoid Distance: Adequate Mallampati Class: Class II Intubation Access Assessment: Probably Good - Pulmonary Exam CTA: Yes - Cardiac Exam Cardiac Exam: RRR - Pre-Operative Health Status ASA Pre-Surgery Classification: ASA2 Proposed Anesthetic Plan: Epidural, Spinal - Pulmonary Hx Smoking: Yes (patient states she quit 07/2016 when she found out she was ) Hx Asthma: No COPD: No Hx Pneumonia: No - Cardiovascular System Hx Hypertension: No - Central Nervous System Hx Seizures: No Hx Psychiatric Problems: No - Endocrine Hx Renal Disease: No Hx End Stage Renal Disease: No Hx Hypothyroidism: No Hx Hyperthyroidism: No - Hematic Hx Anemia: No Hx Sickle Cell Disease: No - Other Systems Hx Alcohol Use: No Hx Obesity: Yes
[2017-02-08] MEDS ORDERED: fentaNYL-BUPIV 2 MCG/ML-0.125% 200 MCG/100 ML BAG EPIDURAL SCH (20:00)
[2017-02-08] MEDS ORDERED: METHERGINE IM ONE ×2 (20:52→22:00)
--- NOTE | 2017-02-08 21:13 | Event Note ---
Date: 02/08/17 Called to room after delivery d/t retained placenta. Part of the placenta was already in vagina the uterus contracted around the remaining placenta. With US guidance at the bedside, IVF bolus and fentanyl IV, the placenta was gently manually removed. Thin endometrial strip was visualized Hemostasis noted, fundus firm. No evidence of uterine inversion.
--- NOTE | 2017-02-08 21:18 | Procedure Note ---
OB Delivery Note - Delivery Date of Delivery: 02/08/17 ( Male) Surgeon: JAIRO VELA Power Systems Engineer: SARAH ASTORGA Estimated blood loss: 500cc - Vaginal Delivery presentation: vertex Delivery position: OA Intrapartum events: none Delivery induction: none Delivery augmentation: rupture of membranes, pitocin Delivery monitor: external FHT, external uterine Route of delivery: Delivery placenta: manual (Del by Dr. Vela) Delivery cord: 3 umbilical vessels Episiotomy: none Delivery laceration: none Anesthesia: epidural Delivery comments: Male del over intact perineum, SAFIA with cord around neck, around body and wrapped around right foot. somersaulted through. placed skin to skin , 3 vessel cord clamped and cut. Placenta manually removed by Dr. Vela, see event note. Pit to IVF and Methergine IM, bleeding scant. no laceration to repair. Placenta to pathology. EBL 500, 's weight 6#11, apgars 9/9. Mother and remain LDR stable. - Infant A at 1 minute: 9 at 5 minutes: 9 Gender: Male (6#11)
[2017-02-09] MEDS ORDERED: PITOCin/NS 20 UNIT/1000ML DRIP 20 UNITS/1,000 ML BAG IV SCH (00:16)
[2017-02-09] MEDS ORDERED: NORCO 5/325 PO PRN (00:16)
[2017-02-09] MEDS ORDERED: TUCKS PAD TP PRN (00:16)
[2017-02-09] MEDS ORDERED: LANSINOH TP PRN (00:16)
[2017-02-09] MEDS ORDERED: PHENERGAN PO PRN (00:16)
[2017-02-09] MEDS ORDERED: TYLENOL PO PRN (00:16)
[2017-02-09] MEDS ORDERED: SODIUM CHLORIDE FLUSH SYRINGE 10 ML IV NR (00:16)
[2017-02-09] MEDS ORDERED: MILK OF MAGNESIA PO PRN (00:16)
[2017-02-09] MEDS ORDERED: BENADRYL PO PRN (00:16)
[2017-02-09] MEDS ORDERED: DULCOLAX PR PRN (00:16)
[2017-02-09] MEDS: MOTRIN PO SCH ×4 (00:30→17:31)
[2017-02-09] MEDS ORDERED: BOOSTRIX IM ONE (06:00)
[2017-02-09 09:27] LABS: Hematocrit 33.5 % (30.3-42.9); Hemoglobin 10.8 gm/dl (10.1-14.3)
[2017-02-09] MEDS: PRENATAL VITAMIN PO SCH (12:30)
--- NOTE | 2017-02-09 12:30 | Progress Note ---
Assessment and Plan - Patient Problems (1) (normal spontaneous vaginal delivery) Current Visit: Yes Status: Acute Subjective - Subjective Date of service: 02/09/17 Principal diagnosis: vag del Interval history: Stable pp with no c/o, no excessive bleeding, home in AM Hct 33, MBT A pos Patient reports: appetite normal, voiding normally, pain well controlled, ambulating normally [place]: doing well Objective - Vital Signs Latest vital signs: Vital Signs Temp Pulse Resp BP Pulse Ox 02/09/17 05:00 98.1 F 75 18 120/51 02/09/17 00:40 98.3 F 76 20 134/69 02/08/17 22:42 71 97/58 02/08/17 22:28 78 110/58 02/08/17 21:57 70 112/65 02/08/17 21:42 79 107/61 02/08/17 21:27 85 109/63 02/08/17 21:12 101 H 108/61 02/08/17 21:11 103 H 64 L 02/08/17 21:10 98.2 F 20 02/08/17 21:09 107 H 99 02/08/17 21:04 97 H 108/67 99 02/08/17 20:59 93 H 96 02/08/17 20:57 93 H 115/59 02/08/17 20:54 93 H 121/56 99 02/08/17 20:49 91 H 100 02/08/17 20:44 88 100 02/08/17 20:08 100 H 100 02/08/17 20:04 106 H 80 L 02/08/17 20:03 98 H 98 02/08/17 19:58 98 H 100 02/08/17 19:57 87 109/57 02/08/17 19:53 102 H 96 02/08/17 19:48 94 H 98 02/08/17 19:43 95 H 99 02/08/17 19:42 87 102/53 02/08/17 19:38 103 H 99 02/08/17 19:33 97 H 98 02/08/17 19:28 98.2 F 95 H 20 111/58 98 02/08/17 19:27 96 H 111/58 02/08/17 19:25 96 H 113/56 02/08/17 19:23 94 H 107/59 99 02/08/17 19:21 96 H 130/67 02/08/17 19:19 88 113/57 02/08/17 19:18 94 H 99 02/08/17 19:17 93 H 110/58 02/08/17 19:15 85 118/68 02/08/17 19:13 86 98 02/08/17 19:11 96 H 127/68 02/08/17 19:09 78 130/76 02/08/17 19:08 52 L 82 L 02/08/17 19:07 97 H 116/85 82 L 02/08/17 18:52 95 H 116/73 02/08/17 18:21 95 H 108/55 02/08/17 17:50 86 99/58 02/08/17 17:23 99.2 F 90 18 93/54 02/08/17 17:20 103 H 93/54 02/08/17 17:16 88 112/65 02/08/17 16:20 93 H 134/65 02/08/17 15:51 94 H 111/68 02/08/17 15:20 97 H 88/55 02/08/17 14:50 98 H 107/73 02/08/17 14:20 85 108/58 02/08/17 13:51 92 H 85/44 02/08/17 13:20 88 104/58 02/08/17 12:52 98 H 97/56 02/08/17 12:45 98.2 F 97 H 20 110/64 Intake and Output 02/08/17 02/09/17 02/09/17 22:59 06:59 14:59 Intake Total 1050 610 Output Total 200 1350 Balance 850 -740 Intake: IV 1050 250 Lactated Ringers 1,000 ml 1000 @ 125 mls/hr IV DIRECT ANGE Rx#:[id number] PITOCin/NS 20 UNIT/1000ML 250 DRIP 20 units In 1,000 ml @ 125 mls/hr IV DIRECT ANGE Rx#:[id number] POLYCILLIN/NS 1 GM/50 ML 50 1 gm In 50 ml @ 100 mls/ hr IV Q4HR ANGE Rx#: [id number] Intake, Free Water 360 Output: Urine 200 1350 Indwelling Catheter 200 Self-Catheterization 400 Void 950 Other: Total, Output Amount 200 150 # Voids Void 1 Estimated Blood Loss 500 - Exam Breasts: Present: deferred Lungs: Present: Normal air movement Abdomen: Present: soft. Absent: tenderness Uterus: Present: normal, firm Extremities: Present: normal
[2017-02-10] MEDS: MOTRIN PO SCH ×3 (01:16→12:43)
--- NOTE | 2017-02-10 09:54 | Discharge Summary ---
Providers - Providers Date of Admission: 02/08/17 11:48 Date of discharge: 02/10/17 Attending physician: JAIRO LING 02/09/17 00:16 Consult to Sales Administrator [CONS] Routine Reason For Exam: assistance with , SNS Primary care physician: POT FISHER Hospitalization Reason for admission: active labor Delivery: Episiotomy: none Laceration: none Other procedures: other (manual placental removal) complications: none Discharge diagnosis: IUP at term delivered [place] baby: male Hospital course: had manual placental removal but no further excessive bleeding, did well . Condition at discharge: Good Disposition: DC-01 TO HOME OR SELFCARE - Discharge Diagnoses (1) (normal spontaneous vaginal delivery) Status: Acute (2) Positive GBS test Status: Acute (3) Cervical incompetence affecting management of mother, antepartum Status: Acute Plan - Discharge Medications Prescriptions: Ibuprofen [Motrin 800 MG tab] 800 mg PO Q8HR PRN #30 tablet PRN Reason: Pain Lidocain2.5%/Prilocai2.5% [Emla] 5 gm TP ONCE PRN #1 tube PRN Reason: Pain - Provider Discharge Summary Activity: routine, no sex for 6 weeks Diet: routine Instructions: routine Additional instructions: [] Smoking cessation referral if applicable(refer to patient education folder for contact #) [] Refer to [facility]'s [facility] Booklet Call your doctor immediately for: * Fever > 100.5 * Heavy vaginal bleeding ( >1 pad per hour) * Severe persistent headache * Shortness of breath * Reddened, hot, painful area to leg or breast * Drainage or odor from incision. * Keep incision clean and dry at all times and follow doctor's instructions regarding bathing/showering - Follow up plan Follow up: PRIMARY CARE, [Primary Care Provider] - 7 Days
[2017-02-10 10:14] VITALS: BP 140/57
[2017-02-10] MEDS: PRENATAL VITAMIN PO SCH (14:27)
== END 2017-02-10 14:45 | disposition home or self-care (01) | DRG 775 ==
LOC: LD 11:48 → OB 02-09
PROVIDERS: ADMIT Obstetrics & Gynecology; ATTEND Obstetrics & Gynecology
PROC: 10E0XZZ Delivery of Products of Conception, External Approach (ICD-10-PCS; principal; 2017-02-08)
PROC: 3E0S3CZ (ICD-10-PCS; 2017-02-08)
PROC: 00HU33Z Insertion of Infusion Device into Spinal Canal, Percutaneous Approach (ICD-10-PCS; 2017-02-08)
DX: O99.824 Streptococcus B carrier state complicating childbirth (principal); Z3A.38 38 weeks gestation of pregnancy; Z37.0 Single live birth; O34.33 Maternal care for cervical incompetence, third trimester
CPT/HCPCS: 36415; 85014; 85018; 85027; 86592; 86850; 86900; 86901; 88307; 90471; 90715; 99211; A6250; G0463; J0290; J2210; J2590; J3010; J7120